=== PATIENT | female | born 1960 | race Caucasian/White ===

== ENCOUNTER 2020-09-16 08:04 | Emergency (ER) | payer MEDICARE, BC ==
[2020-09-16 09:09] LABS: #Eosinphils 0.2 10x3/uL (0.0-0.5); #Monocytes 0.9 10x3/uL (0.0-1.1); #Neutrophils 7.4 10x3/uL (1.5-8.4); %Basophils 0.4 % (0.0-2.0); %Eosinophils 2.1 % (0.0-6.0); %Lymphocytes 18.9 % (18.0-47.0); %Monocytes 8.5 % (0.0-10.0); %Neutrophils 69.7 % (40.0-75.0); Hemoglobin 11.9 g/dL (12.0-15.5); Mean Corpuscular Hemoglobin 25.1 pg (27.0-33.0); Mean Platelet Volume 10.4 fl (7.4-10.4); Platelet Count 276 10x3/uL (150-450); RBC Distribution Width 15.2 % (11.5-14.5); Red Blood Cell (RBC) Count 4.74 10x6/uL (3.90-5.03); White Blood Cell (WBC) Count 10.6 10x3/uL (3.5-10.5)
[2020-09-16 09:19] LABS: ALT (SGPT) 19 U/L (8-55); AST (SGOT) 17 U/L (5-34); Albumin 4.4 g/dL (3.5-5.0); Alkaline Phosphatase 74 U/L (40-110); Anion Gap 15 mmol/L (10-20); BUN (Urea Nitrogen) 20 mg/dL (9.8-20.1); Bilirubin, Total 0.3 mg/dL (0.2-1.2); Calc. Creatinine Clearance 0 mL/min (70-130); Carbon Dioxide 22 mmol/L (22-29); Chloride 110 mmol/L (98-107); Globulin 2.6 g/dL (2.4-3.5); Glucose 134 mg/dL (70-105); Potassium 3.6 mmol/L (3.5-5.1); Sodium 143 mmol/L (136-145)
[2020-09-16] MEDS ORDERED: Ventolin HFA Inhaler 60 PUFF INHALER ONE (09:22)
[2020-09-16 14:29] LABS: SARS-CoV-2 PCR by NAA Not Detected (NotDetected)
== END 2020-09-16 09:47 | disposition home or self-care (01) ==
LOC: CSHERS 08:04
DX: J06.9 Acute upper respiratory infection, unspecified (principal); Z20.822 Contact with and (suspected) exposure to COVID-19; E03.9 Hypothyroidism, unspecified; E66.9 Obesity, unspecified; Z79.899 Other long term (current) drug therapy
CPT/HCPCS: 71045; 80053; 85025; 93005; 94640; 99284; U0003; U0005; 87635; J7620

== ENCOUNTER 2021-06-14 04:03 | Emergency (ER) | payer MEDICARE ==
[2021-06-14] MEDS ORDERED: Lidocaine 1% (PF) 30 ML VIAL ONE (05:08)
[2021-06-14 05:37] LABS: ALT (SGPT) 16 U/L (8-55); AST (SGOT) 25 U/L (5-34); Albumin 4.5 g/dL (3.5-5.0); Alkaline Phosphatase 73 U/L (40-110); Anion Gap 15 mmol/L (10-20); BUN (Urea Nitrogen) 15 mg/dL (9.8-20.1); Bilirubin, Total 0.5 mg/dL (0.2-1.2); Calc. Creatinine Clearance 0 mL/min (70-130); Calcium 9.7 mg/dL (7.8-10.44); Carbon Dioxide 23 mmol/L (22-29); Chloride 109 mmol/L (98-107); Globulin 2.8 g/dL (2.4-3.5); Glucose 101 mg/dL (70-105); Protein, Total 7.3 g/dL (6.0-8.3); Sodium 143 mmol/L (136-145)
[2021-06-14] MEDS ORDERED: Aspirin 325 MG TAB ONE (05:56)
[2021-06-14] MEDS ORDERED: Acetaminophen 500 MG TAB ONE (05:56)
[2021-06-14 06:11] LABS: #Eosinphils 0.2 10x3/uL (0.0-0.5); #Monocytes 0.6 10x3/uL (0.0-1.1); %Basophils 0.6 % (0.0-2.0); %Eosinophils 3.6 % (0.0-6.0); %Monocytes 8.8 % (0.0-10.0); Hemoglobin 11.4 g/dL (12.0-15.5); Mean Corpuscular HGB CONC 30.7 g/dL (32.0-36.0); Mean Corpuscular Hemoglobin 25.4 pg (27.0-33.0); Mean Corpuscular Volume 82.8 fl (81.6-98.3); Mean Platelet Volume 11.1 fl (7.4-10.4); Platelet Count 231 10x3/uL (150-450); RBC Distribution Width 15.1 % (11.5-14.5); Red Blood Cell (RBC) Count 4.48 10x6/uL (3.90-5.03); White Blood Cell (WBC) Count 6.4 10x3/uL (3.5-10.5)
[2021-06-14 08:02] LABS: Troponin I Less than 0.010 ng/mL (< 0.028)
[2021-06-14] MEDS ORDERED: Fentanyl 100 MCG/2 ML VIAL ONE (08:10)
[2021-06-14] MEDS ORDERED: Apixaban 5 MG TAB ONE (08:42)
== END 2021-06-14 08:47 | disposition home or self-care (01) ==
LOC: CSHERS 04:03
DX: I26.99 Other pulmonary embolism without acute cor pulmonale (principal); I25.10 Atherosclerotic heart disease of native coronary artery without angina pectoris; E03.9 Hypothyroidism, unspecified; E66.9 Obesity, unspecified; Z79.899 Other long term (current) drug therapy
CPT/HCPCS: 36415; 71045; 71275; 80053; 84484; 85025; 85379; 93005; 96374; J2001; J3010

== ENCOUNTER 2022-01-21 20:09 | Emergency (ER) | payer MEDICARE ==
[~2022-01-21 20:09] MED LIST: Iopamidol 370 76% 100 ML VIAL ONE
[2022-01-21 20:57] LABS: Bilirubin Neg (Negative); Blood, Urine 10 (Negative); Clarity Clear (Clear); Glucose, Urine (Dipstick) Normal (Negative); Ketone, Urine Negative (Negative); Leukocyte Negative (Negative); Nitrite Negative (Negative); Protein, Urine (Dipstick) Negative (Neg-Trace); Specific Gravity, Urine 1.015 (1.002-1.036); Urobilinogen Normal mg/dL (Less than 2)
[2022-01-21 21:05] LABS: Bacteria/HPF Rare-Few HPF (None Seen); RBC/HPF 0-3 HPF (0-3); Squamous Epithelial 0-3 HPF (0-3); WBC/HPF 0-3 HPF (0-3)
[2022-01-21] MEDS ORDERED: Metoclopramide HCl 10 MG/2 ML VIAL ONE (21:24)
[2022-01-21] MEDS ORDERED: diphenhydrAMINE 50 MG/ML VIAL ONE (21:24)
[2022-01-21] MEDS ORDERED: methylPREDNISolone Sod Succ 40 MG VIAL ONE (21:24)
[2022-01-21] MEDS ORDERED: Acetaminophen 500 MG TAB ONE (21:24)
[2022-01-21 21:38] LABS: SARS-CoV-2 NAA Rapid Test DETECTED (NotDetected)
[2022-01-21 21:59] LABS: #Eosinphils 0.1 10x3/uL (0.0-0.5); #Monocytes 0.5 10x3/uL (0.0-1.1); #Neutrophils 3.6 10x3/uL (1.5-8.4); %Basophils 0.4 % (0.0-2.0); %Eosinophils 1.6 % (0.0-6.0); %Lymphocytes 18.3 % (18.0-47.0); %Monocytes 10.3 % (0.0-10.0); Hemoglobin 12.7 g/dL (12.0-15.5); Mean Corpuscular HGB CONC 32.9 g/dL (32.0-36.0); Platelet Count 179 10x3/uL (150-450); RBC Distribution Width 13.4 % (11.5-14.5); Red Blood Cell (RBC) Count 4.71 10x6/uL (3.90-5.03); White Blood Cell (WBC) Count 5.1 10x3/uL (3.5-10.5)
[2022-01-21 22:08] LABS: ALT (SGPT) 23 U/L (8-55); AST (SGOT) 28 U/L (5-34); Albumin 4.3 g/dL (3.4-4.8); Alkaline Phosphatase 78 U/L (40-110); Anion Gap 18 mmol/L (10-20); BUN (Urea Nitrogen) 12 mg/dL (9.8-20.1); Bilirubin, Total 0.6 mg/dL (0.2-1.2); Calc. Creatinine Clearance 0 mL/min (70-130); Calcium 9.6 mg/dL (7.8-10.44); Carbon Dioxide 18 mmol/L (23-31); Chloride 107 mmol/L (98-107); Estimated GFR 83; Globulin 2.8 g/dL (2.4-3.5); Glucose 104 mg/dL (80-115); Potassium 3.4 mmol/L (3.5-5.1); Protein, Total 7.1 g/dL (5.8-8.1); Sodium 140 mmol/L (136-145)
[2022-01-21 23:56] LABS: Troponin I Less than 0.010 ng/mL (< 0.028)
== END 2022-01-22 00:27 | disposition home or self-care (01) ==
LOC: CSHERS 20:09
DX: U07.1 COVID-19 (principal); I10 Essential (primary) hypertension; E03.9 Hypothyroidism, unspecified; Z79.899 Other long term (current) drug therapy
CPT/HCPCS: 71045; 71275; 80053; 84484 ×2; 85025; 85379; 87086; 93005; 96361; 96374; 96375; 99285; U0002; 36415; 81003; 81015; J1200; J2765; J2920; Q9967

== ENCOUNTER 2023-04-22 10:02 | Emergency (ER) | payer MEDICARE ==
[2023-04-22] MEDS ORDERED: Ondansetron PF 4 MG/2 ML Vial ONE ×2 (10:42→11:26)
[2023-04-22 10:58] LABS: #Eosinphils 0.1 10x3/uL (0.0-0.5); #Monocytes 0.4 10x3/uL (0.0-1.1); #Neutrophils 3.7 10x3/uL (1.5-8.4); %Basophils 0.5 % (0.0-2.0); %Eosinophils 2.3 % (0.0-6.0); %Lymphocytes 30.3 % (18.0-47.0); %Neutrophils 59.6 % (40.0-75.0); Hematocrit 42.3 % (34.9-44.5); Mean Corpuscular HGB CONC 33.1 g/dL (32.0-36.0); Mean Corpuscular Hemoglobin 28.1 pg (27.0-33.0); Mean Corpuscular Volume 84.9 fl (81.6-98.3); Mean Platelet Volume 10.9 fl (7.4-10.4); Platelet Count 286 10x3/uL (150-450); RBC Distribution Width 12.7 % (11.5-14.5); Red Blood Cell (RBC) Count 4.98 10x6/uL (3.90-5.03); White Blood Cell (WBC) Count 6.2 10x3/uL (3.5-10.5)
[2023-04-22 11:01] LABS: ALT (SGPT) 13 U/L (8-55); AST (SGOT) 22 U/L (5-34); Albumin 4.2 g/dL (3.4-4.8); Alkaline Phosphatase 70 U/L (40-110); Anion Gap 17 mmol/L (10-20); BUN (Urea Nitrogen) 15 mg/dL (9.8-20.1); Bilirubin, Total 0.4 mg/dL (0.2-1.2); Calc. Creatinine Clearance 0 mL/min (70-130); Calcium 9.2 mg/dL (7.8-10.44); Carbon Dioxide 19 mmol/L (23-31); Chloride 113 mmol/L (98-107); Estimated GFR 77; Globulin 3.1 g/dL (2.4-3.5); Glucose 150 mg/dL (80-115); Lipase 8 U/L (8-78); Protein, Total 7.3 g/dL (5.8-8.1); Sodium 145 mmol/L (136-145)
[2023-04-22] MEDS ORDERED: Morphine 4 MG/ML VIAL ONE (11:25)
[2023-04-22 11:56] LABS: Troponin I Less than 0.010 ng/mL (< 0.028)
[2023-04-22] MEDS ORDERED: HYDROmorphone 0.5 MG/0.5 ML SYRINGE ONE (11:58)
[2023-04-22 13:19] LABS: Bilirubin Neg (Negative); Blood, Urine Negative (Negative); Clarity Cloudy (Clear); Glucose, Urine (Dipstick) Normal (Negative); Ketone, Urine Negative (Negative); Leukocyte 25 (Negative); Nitrite Negative (Negative); Protein, Urine (Dipstick) 30 mg/dl (Neg-Trace); Specific Gravity, Urine 1.025 (1.005-1.030)
[2023-04-22 14:03] LABS: Bacteria/HPF 3+ HPF (None Seen); CAUTI Indications for Culture Pelvic or flank pain; Calcium Oxalate Crystals 2+ HPF (None Seen); RBC/HPF 0-3 HPF (0-3); WBC/HPF 0-3 HPF (0-3)
[2023-04-22 14:04] LABS: Urine Culture Reflex No No
[2023-04-22] MEDS ORDERED: HYDROcodone/Acetaminophen 5/325 mg Tablet ONE (14:17)
== END 2023-04-22 13:14 | disposition home or self-care (01) ==
LOC: CSHERS 10:02
DX: R10.9 Unspecified abdominal pain (principal); I10 Essential (primary) hypertension
CPT/HCPCS: 71045; 74176; 80053; 81001; 83690; 83735; 84484; 85025; 93005; 96361; 96374; 96375; 96376; J1170; J2270; J2405

== ENCOUNTER 2023-08-29 10:18 | Outpatient (CLI) | payer MEDICARE | END 2023-08-29 10:19 | disposition home or self-care (01) | LOC: CSHULT 10:18 | PROVIDERS: ATTEND Family Medicine | DX: R22.32 Localized swelling, mass and lump, left upper limb (principal) | CPT/HCPCS: 76999 ==

== ENCOUNTER 2023-12-03 17:27 | Emergency (ER) | payer MEDICARE ==
[2023-12-03] MEDS ORDERED: Diazepam 5 MG TAB ONE ×2 (18:10→18:14)
[2023-12-03] MEDS ORDERED: Naproxen 500 MG TAB ONE (19:13)
[2023-12-03] MEDS ORDERED: tiZANidine HCl 4 MG TAB PO SCH (19:30)
[2023-12-03] MEDS ORDERED: Lidocaine 4% Patch TD SCH (19:30)
[2023-12-03] MEDS ORDERED: Acetaminophen/Codeine 30-300mg Tablet ONE (19:36)
== END 2023-12-03 20:43 | disposition home or self-care (01) ==
LOC: CSHERS 17:27
DX: M62.830 Muscle spasm of back (principal); I10 Essential (primary) hypertension
CPT/HCPCS: 99283